=== PATIENT | female | born 1960 | race Caucasian/White ===

== ENCOUNTER → 2022-11-26 14:08 | Outpatient (CLI) | payer OTHER, SELFPAY ==
--- NOTE | ~2022-11-26 | DEXA_ITS ---
Bone Density Report Name: DEBBIE GARDUNO Age: 61 Sex: Female Ethnicity: White Date of : 1960 Indication: postmenopausal; screening for osteoporosis; parental hip fracture; history of glucocorticoids; hysterectomy; Referring Provider: ALEC LONGORIA Study: Bone densitometry was performed. Exam Date: November 26, 2022 Accession number: [id number] Bone Density: Region BMD T-score Z-score Classification AP Spine (L1-L4) 0.869 -1.6 -0.1 Osteopenia Femoral Neck (Left) 0.627 -2.0 -0.6 Osteopenia Total Hip (Left) 0.918 -0.2 0.9 Normal Femoral Neck (Right) 0.613 -2.1 -0.8 Osteopenia Total Hip (Right) 0.873 -0.6 0.5 Normal Total Hip Mean 0.896 -0.4 0.7 Normal World Health Organization criteria for BMD impression classify patients as: Normal (T-score at or above -1.0), Osteopenia (T-score between -1.0 and -2.5), or Osteoporosis (T-score at or below -2.5). 10-year Fracture Risk(1): Major Osteoporotic Fracture 27% Hip Fracture 2.3% Reported Risk Factors: [place] (), Neck BMD=0.613, BMI=35.8, parental fracture, glucocorticoids (1) FRAX(R) Version 3.08. Fracture probability calculated for an untreated patient. Fracture probability may be lower if the patient has received treatment. Clinical Information Provided by Patient: Parent has had a hip fracture Has taken Glucocorticoids Has the following medical conditions: Hysterectomy, Autoimmune Hepatitis Patient maximum height was 67.3 Menopause Age: 50 No regular weight bearing exercise Drinks caffeinated beverages Onset of menses at age 13 Number of children 3 Impression: The patient has low bone mass, based on the Right Femoral Neck T-score. The patient has an estimated ten-year risk of hip fracture of 2.3% and an estimated ten-year risk of major fracture of 27%, based on the WHO FRAX algorithm. The patient has risk factors, including: parental hip fracture, history of glucocorticoid therapy. Discussion: BONE DENSITY IS LOW AT ONE OR MORE SKELETAL SITES. THE PATIENT'S BMD AND CLINICAL RISK FACTORS CONTRIBUTE TO THIS PATIENT'S INCREASED RISK OF FRACTURE. This patient's lowest T-score is low at one or more skeletal sites. It meets the World Health Organization's (WHO) criteria for ?low bone mass? (T-score between -1.0 and -2.5). The patient's 10-year risk of a major osteoporotic fracture as calculated by FRAX exceeds the threshold where pharmacological therapy is recommended by the National Osteoporosis Foundation (NOF). However, all treatment decisions require clinical judgment and consideration of individual patient factors, including patient preferences, comorbidities, previous drug use, risk factors not captured in the FRAX model (e.g., frailty, falls, vitamin D deficiency, increased bone turnover, interval significant decline in bone d
== END ==
PROVIDERS: PCP Family Medicine
DX: M85.89 Other specified disorders of bone density and structure, multiple sites (principal); K75.4 Autoimmune hepatitis; K76.0 Fatty (change of) liver, not elsewhere classified; Z79.899 Other long term (current) drug therapy
CPT/HCPCS: 77080

== ENCOUNTER 2023-07-25 11:40 | Emergency (ER) | payer OTHER, SELFPAY ==
[2023-07-25] VITALS (19 sets, daily range): BP systolic 114–149; BP diastolic 68–91; PULSE 63–81; RESP 12–16; TEMP 35.9–36.5; O2SAT 95–100
--- NOTE | 2023-07-25 12:23 | ED.NAVMDI ---
HPI - Nausea/Vomiting/Diarrhea General Chief complaint: Nausea/Vomiting/Diarrhea Stated complaint: headache, weak Time Seen by Provider: 07/25/23 12:19 Source: patient Mode of arrival: ambulatory Limitations: no limitations History of Present Illness HPI Narrative: Patient is a 62-year-old female who presents to the ED with report of nausea and vomiting. Patient reports a long history of neck pain and associated migraines. She began feeling pain in her neck and a migraine developing last night. She took her rizatriptan last night and states the symptoms improved. This morning, she began feeling nauseous and has been unable to keep down any food or drink all day. She has had numerous episodes of vomiting which prompted her to come to the ED. She feels weak and dehydrated. She states she occasionally has vomiting associated with her migraines, but it is not a frequent symptom. She denies abdominal pain, diarrhea, constipation, hematemesis, fevers, dizziness, vision changes, focal weakness or numbness. Patient has Hx of autoimmune hepatitis, which she states is controlled. She receives blood work monthly. Related Data Home Medications Medication Instructions Recorded Confirmed azathioprine 50 mg tablet 50 mg PO DAILY 01/14/22 01/14/22 fluticasone propionate 50 1 spray intranasal DAILY 01/14/22 01/14/22 mcg/actuation nasal spray,suspension (Flonase Allergy Relief) metronidazole 0.75 % topical gel 1 applic topical BID 01/14/22 01/14/22 rizatriptan 10 mg tablet (Maxalt) 10 mg PO ONCE 01/14/22 01/14/22 simvastatin 20 mg tablet 20 mg PO DAILY 01/14/22 01/14/22 Allergies Allergy/AdvReac Type Severity Reaction Status Date / Time azithromycin Allergy Mild diarrhea Verified 07/25/23 12:00 Review of Systems Review of Systems: CONSTITUTIONAL: Denies fever, chills, or sweats. EYES: Denies visual changes. CARDIOVASCULAR: Denies chest pain. RESPIRATORY: Denies dyspnea. GASTROINTESTINAL: See HPI. MUSCULOSKELETAL: See HPI. NEUROLOGIC: See HPI. All systems reviewed & are unremarkable except as noted in HPI and below PMFSH Past Medical History Medical History Hepatitis Migraine Surgical History Surgical History History of appendectomy History of bladder surgery History of hysterectomy History of tonsillectomy Family History Family History Other Aneurysm Cerebrovascular accident Heart disease Hypertension Ovarian cancer Parkinsons disease Thyroid disorder Social History Social History Smoking status: Never smoker Alcohol intake: current Living arrangements: with family Occupation/Education: retired Additional occupation/education comments: retired teacher Exam Narrative: GENERAL: Well appearing, obese with BMI of 35.2, non-toxic, in no acute distress. HEAD: Normocephalic, atraumatic. EYES: PERRLA/EOMI, conjunctiva clear. NECK: Supple. No adenopathy, no masses. No midline spinal tenderness. RESPIRATORY: Airway patent, respirations nonlabored. Clear to auscultation bilaterally, no rales, rhonchi, wheezing. CARDIOVASCULAR: Regular rate and rhythm without murmurs, rubs, or gallops. Peripheral pulses 2+ and equal bilaterally. ABDOMINAL: Soft, no tenderness throughout abdomen, nondistended, no hepatosplenomegaly. Normoactive BS. MUSCULOSKELETAL: Moves all extremities. No gross deformities. SKIN: Warm, dry, normal color. No rashes. NEURO: A&O X3. Speech clear. Cranial nerves II-XII grossly intact. Steady gait. No ataxic movements. No focal deficits. PSYCHIATRIC: Appropriate mood and affect. Normal interaction. Course Vital Signs Vital signs: Vital Signs Temperature 96.7 F L 07/25/23 11:45 Pulse Rate 81 07/25/23 11:45 Respiratory Rate
[2023-07-25 12:59] LABS: Alanine Aminotransferase 26 U/L (6-35); Albumin Level 4.1 g/dL (3.5-5.1); Alkaline Phosphatase 84 U/L (38-126); Anion Gap 6 mmol/L (8-16); Aspartate Amino Transferase 27 U/L (14-36); Bilirubin,Total 0.6 mg/dL (0.2-1.3); Blood Urea Nitrogen 13 mg/dL (7-17); Calcium 9.1 mg/dL (8.4-10.2); Carbon Dioxide 27 mmol/L (22-30); Chloride 104 mmol/L (98-107); Estimated CRCL calculation 101 ml/min; Estimated Glomerular Filt Rate > 60; Glucose 137 mg/dL (65-110); Lipase 76 U/L (23-300); Potassium 4.1 mmol/L (3.4-5.0); Sodium 137 mmol/L (137-145)
[2023-07-25 13:26] LABS: Appearance Urine Cloudy (Clear); Bacteria Urine Rare /hpf; Bilirubin Urine Negative (Negative); Blood Urine 1+ (Negative); Color Urine Yellow (Yellow); Glucose Urine UA Negative (Negative); Ketones Urine 1+ mg/dL (Negative); Leukocyte Esterase Ur 2+ LEU/UL (Negative); Nitrate Urine Negative (Negative); Non Pathogenic Casts 0-2; Protein Urine Trace mg/dL (Negative); Squamous Epithelial Cell Urine Occasional /hpf (Few); Urobilinogen Urine 0.2 mg/dL (<2.0); pH Urine 6.5 (5.0-9.0)
[2023-07-25 13:27] LABS: Add Urine Microscopic? YES
[2023-07-25] MEDS: ONDANSETRON INJ 4 MG/2 ML VIAL IV PUSH (13:55)
[2023-07-25] MEDS: FAMOTIDINE 20 MG/2 ML VIAL IV PUSH (13:55)
[2023-07-25] MEDS: SODIUM CHLORIDE 0.9% IV 1,000 ML 999 ML IV CONT ×2 (13:55)
[2023-07-25 14:06] LABS: Magnesium 2.2 mg/dL (1.6-2.3)
[2023-07-25 14:34] LABS: Basophils Absolute Auto 0.1 K/mm3 (0.0-0.1); Basophils Percent Auto 0.7 % (0.2-1.2); Eosinophils Percent Auto 0.3 % (0-4.4); Hematocrit 42.4 % (37.0-47.0); Hemoglobin 13.9 g/dL (12.0-15.0); Immature Granulocyte Absolute 0.05 K/mm3 (0.00-0.031); Immature Granulocyte Percent A 0.7 % (0-0.5); Lymphocytes Absolute Auto 0.83 K/mm3 (0.9-3.2); Lymphocytes Percent Auto 11.7 % (18.3-44.2); Mean Corpuscular HGB Conc 32.8 g/dl (32-36); Mean Corpuscular Hemoglobin 31.9 pg (26-34); Mean Corpuscular Volume 97.2 fl (80-100); Mean Platelet Volume 9.9 fl (7.4-10.4); Monocytes Absolute Auto 0.4 K/mm3 (0.1-0.6); Monocytes Percent Auto 6.1 % (2.6-8.5); Neutrophils Absolute Auto 5.7 K/mm3 (1.3-6.7); Neutrophils Percent Auto 80.5 % (45.5-73.1); Platelet Count Result 249 k/mm3 (150-375); Red Blood Count 4.36 M/mm3 (4.2-5.4); White Blood Count 7.1 K/mm3 (4.5-10.0)
[2023-07-25] MEDS: IBUPROFEN 600 MG TABLET PO (16:28)
== END 2023-07-25 17:44 | disposition home or self-care (01) ==
PROVIDERS: Emergency Provider Physician Assistant; PCP Family Medicine
DX: R11.2 Nausea with vomiting, unspecified (principal); G43.909 Migraine, unspecified, not intractable, without status migrainosus; K75.4 Autoimmune hepatitis; Z90.710 Acquired absence of both cervix and uterus
CPT/HCPCS: 36415; 80053; 81001; 83690; 83735; 85025; 87086; 96361; 96374; 96375; 99284; A9270; J2405; J7030

== ENCOUNTER 2023-09-24 00:15 | Day surgery (SDC) | payer OTHER, SELFPAY ==
[2023-08-29 10:16] VITALS: BMI 35.2
--- NOTE | 2023-09-19 12:32 | SUR.PREOP ---
Patient called regarding upcoming procedure. Left voicemail with date and time of procedure and contact for questions.
--- NOTE | 2023-09-22 15:57 | PM.HPGS ---
History of Present Illness History of Present Illness Consent: Risks, benefits, and alternatives have been discussed and questions answered. Patient agrees to proceed with procedure. Chief complaint: hemorrhage of anus and rectum Narrative: Leann Sandhu is a 62 year old female with rectal bleeding . In early July she had become constipated and when she finally had a bowel movement after taking the Dulcolax she had a very large stool followed by many liquid stools. For about 4 days she was passing blood which is bright red. After being seen in our office and having adopted high-fiber diet she has had no further bleeding. Her last colonoscopy was 9 years ago. Review of Systems Review of Systems: All systems reviewed & are unremarkable except as noted in HPI and below PMFSH Past Medical History Medical History Autoimmune hepatitis Hepatitis Migraine Surgical History Surgical History History of appendectomy History of bladder surgery History of hysterectomy History of tonsillectomy Family History Family History Other Aneurysm Cerebrovascular accident Heart disease Hypertension Ovarian cancer Parkinsons disease Thyroid disorder Social History Social History Smoking status: Never smoker Alcohol intake: current Drinks per week: 1 Living arrangements: with family Occupation/Education: retired Additional occupation/education comments: retired teacher Spiritual care concerns: No Meds Home Medications and Allergies Home Medications Medication Instructions Recorded Confirmed Type azathioprine 50 mg tablet 100 mg PO DAILY 01/14/22 09/24/23 History doxycycline hyclate 100 mg capsule 100 mg PO DAILY #20 caps 01/14/22 09/24/23 Rx fluticasone propionate 50 1 spray intranasal DAILY 01/14/22 09/24/23 History mcg/actuation nasal spray,suspension (Flonase Allergy Relief) metronidazole 0.75 % topical gel 1 applic topical BID 01/14/22 09/24/23 History rizatriptan 10 mg tablet (Maxalt) 10 mg PO ONCE 01/14/22 09/24/23 History simvastatin 20 mg tablet 20 mg PO DAILY 01/14/22 09/24/23 History budesonide 3 mg 3 mg PO DAILY 08/07/23 09/24/23 History capsule,delayed,extended release Allergies Allergy/AdvReac Type Severity Reaction Status Date / Time azithromycin Allergy Mild diarrhea Verified 09/24/23 07:08 Exam Resp: Auscultation: clear to auscultation bilaterally Cardio: Rate: regular rate Rhythm: regular rhythm GI: GI Palp: Yes Soft to palpation and No Tenderness to palpation present (GI) Assessment and Plan Assessment and plan (1) Blood in stool: Code(s): K92.1 - Melena Status: Acute Assessment and Plan: Colonoscopy with possible biopsy or polypectomy or cautery or injection of substances.
[2023-09-24 07:00] VITALS: BP 143/79; PULSE 79; RESP 18; TEMP 35.9; O2SAT 100; BMI 35.2
[2023-09-24] MEDS: LACTATED RINGERS 1,000 ML 150 ML IV CONT (07:24)
--- NOTE | 2023-09-24 07:51 | WPDANESEPPF ---
Anes - Initial Pre Proc Eval Procedure: Operation Date: 09/24/23 08:30 Proposed Procedures p Colonoscopy - Maxx Medina MD Date/Time: 09/24/23 07:51 Surgeon: Maxx Medina MD Pre Op Diagnosis: hemorrhage of anus and rectum Patient Data Age: 62 Gender: F Height: 1.7 m Weight: 102 kg Last Vital Signs Temp 96.7 F L 09/24/23 07:00 Pulse 79 09/24/23 07:00 Resp 18 09/24/23 07:00 BP 143/79 H 09/24/23 07:00 Pulse Ox 100 09/24/23 07:00 O2 Del Method Room Air 09/24/23 07:00 Allergies Allergy/AdvReac Type Severity Reaction Status Date / Time azithromycin Allergy Mild diarrhea Verified 09/24/23 07:08 Home Medications Medication Instructions Recorded Confirmed Type azathioprine 50 mg tablet 100 mg PO DAILY 01/14/22 09/24/23 History doxycycline hyclate 100 mg capsule 100 mg PO DAILY #20 caps 01/14/22 09/24/23 Rx fluticasone propionate 50 1 spray intranasal DAILY 01/14/22 09/24/23 History mcg/actuation nasal spray,suspension (Flonase Allergy Relief) metronidazole 0.75 % topical gel 1 applic topical BID 01/14/22 09/24/23 History rizatriptan 10 mg tablet (Maxalt) 10 mg PO ONCE 01/14/22 09/24/23 History simvastatin 20 mg tablet 20 mg PO DAILY 01/14/22 09/24/23 History budesonide 3 mg 3 mg PO DAILY 08/07/23 09/24/23 History capsule,delayed,extended release Patient hx anesthesia problems: none Family hx anesthesia problems: none Results Review: All pre-operative results and documents have been reviewed as part of the pre-operative evaluation. 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 Informed Consent: The patient's anesthetic plan and its attendant risks and benefits were discussed with the patient/family/POA. Questions were solicited and answers provided to the satisfaction of the patient/family/POA.
[2023-09-24 08:37] VITALS: BP 89/52; PULSE 71; RESP 18; O2SAT 99
[2023-09-24 08:47] VITALS: BP 81/52; PULSE 63; RESP 14; O2SAT 99
[2023-09-24 08:57] VITALS: BP 116/73; PULSE 62; RESP 20; O2SAT 99
== END 2023-09-24 09:05 | disposition home or self-care (01) ==
PROVIDERS: PCP Family Medicine; Visit Provider Internal Medicine Gastroenterology
PROC: 0DJD8ZZ Inspection of Lower Intestinal Tract, Via Natural or Artificial Opening Endoscopic (ICD-10-PCS; CPT 45378; principal; 2023-09-24 08:30)
DX: K92.1 Melena (principal); D12.8 Benign neoplasm of rectum; K75.4 Autoimmune hepatitis; E66.9 Obesity, unspecified; Z68.35 Body mass index [BMI] 35.0-35.9, adult; Z82.49 Family history of ischemic heart disease and other diseases of the circulatory system; Z80.41 Family history of malignant neoplasm of ovary
CPT/HCPCS: 45381; 45385; 88305; J2704; J7120